=== PATIENT | male | born 1970 | race Caucasian/White ===

== ENCOUNTER 2023-10-28 19:46 | Emergency (ER) | payer SELFPAY | END 2023-10-28 22:00 | disposition home or self-care (01) | LOC: MW.ED 19:46 | DX: R18.8 Other ascites (principal); Z75.8 Other problems related to medical facilities and other health care; Z88.0 Allergy status to penicillin; Z88.2 Allergy status to sulfonamides; Z79.899 Other long term (current) drug therapy | CPT/HCPCS: 49082; 99283-25 ==